=== PATIENT | female | born 1975 | race African-American/Black ===

== ENCOUNTER 2016-05-10 23:14 | Emergency (ER) | payer OTHER ==
[2016-05-10 23:47] VITALS: BP 144/82; PULSE 99; TEMP 98.7; BMI 31.1
[2016-05-11 00:26] LABS: LEUKOCYTES/URINE 1+ (NEGATIVE); NITRITE/URINE NEG (NEGATIVE); URINE OCCULT BLOOD NEG (NEG/TRACE)
== END 2016-05-11 02:00 | disposition left against medical advice (07) ==
LOC: ED 23:14
DX: R51 Headache (principal)
CPT/HCPCS: 81001; 81025; 99281